=== PATIENT | female | born 1930 | race Caucasian/White ===

== ENCOUNTER → 2016-10-23 | Outpatient (CLI) | payer MEDICARE, BC ==
[~2016-10-23] MED LIST: ADVIL200 MG PO; CENTRUM SILVER1 TA2 PO; PRINZIDE 12.5 M1 TAB PO
== END ==
LOC: MC.RAD 09:54
DX: N63 Unspecified lump in breast (principal)
CPT/HCPCS: 30634

== ENCOUNTER 2016-11-14 06:29 | Day surgery (SDC) | payer MEDICARE, BC ==
[2016-11-14] VITALS (8 sets, daily range): BP systolic 102–150; BP diastolic 41–90; PULSE 61–67; TEMP 98–98.2
[~2016-11-14] VITALS: Ht 157.5 cm; Wt 72.3 kg
[2016-11-14] MEDS ORDERED: PRINZIDE 12.5 M1 TAB PO (08:01)
[2016-11-14] MEDS ORDERED: CENTRUM SILVER1 TA2 PO (08:02)
[2016-11-14] MEDS ORDERED: ADVIL200 MG PO (08:02)
[2016-11-15 01:39] VITALS: BP 116/68; PULSE 67; TEMP 98.5
[2016-11-15 05:25] VITALS: BP 106/48; PULSE 72; TEMP 97.5
[2016-11-15 10:10] VITALS: BP 117/50; PULSE 64; TEMP 97.8
[2016-11-15 13:18] VITALS: BP 99/42; PULSE 72; TEMP 97.9
== END 2016-11-15 14:35 | disposition home or self-care (01) ==
LOC: SDCO 06:29 → JCC 17:10 → SDCO 11-15 14:35
DX: C50.912 Malignant neoplasm of unspecified site of left female breast (principal); N60.12 Diffuse cystic mastopathy of left breast; I10 Essential (primary) hypertension; M19.90 Unspecified osteoarthritis, unspecified site; F41.9 Anxiety disorder, unspecified; M81.0 Age-related osteoporosis without current pathological fracture; R92.0 Mammographic microcalcification found on diagnostic imaging of breast; Z90.710 Acquired absence of both cervix and uterus; Z98.51 Tubal ligation status; Z82.3 Family history of stroke
CPT/HCPCS: OP; A9284; A9541; J0690; J2270; J2704; J2795; J3010; J7120; Q9968